=== PATIENT | female | born 1975 | race Two or more races ===

== ENCOUNTER → 2020-08-04 08:00 | Outpatient (CLI) | payer OTHER ==
[~2020-08-04] VITALS: Ht 152.4 cm; Wt 99.8 kg
[~2020-08-04 08:00] MED LIST: SYNTHROID50 MCG PO; TUMS ULTRA ST1177 MG PO; VISTARIL25 MG PO
== END | disposition home or self-care (01) ==
LOC: LAB 08:00 → SURH 08-11 09:00 → EDSTATUS 08-11 12:00 → SURH 08-11 12:00
PROVIDERS: ATTEND Surgery
DX: U07.1 COVID-19 (principal); E04.2 Nontoxic multinodular goiter

== ENCOUNTER 2020-09-01 15:32 | Inpatient (IN) | payer OTHER | END 2020-09-09 13:01 | disposition home or self-care (01) | DRG 627 | LOC: SURH 09-08 07:00 → O/R 09-08 07:00 → SURH 09-08 08:45 | PROVIDERS: ADMIT Surgery; ATTEND Surgery | PROC: 0GTG0ZZ Resection of Left Thyroid Gland Lobe, Open Approach (ICD-10-PCS; principal; 2020-09-08 07:00) | DX: C73 Malignant neoplasm of thyroid gland (principal); E04.2 Nontoxic multinodular goiter ==